=== PATIENT | male | born 1970 | race Caucasian/White ===

== ENCOUNTER 2017-02-21 12:05 | Inpatient (IN) ==
--- NOTE | 2017-02-21 14:20 | Pulmonology History & Physical ---
Date of Encounter: 02/21/17 Time of Encounter: 14:20 Assessment and Plan (1) Upper gastrointestinal bleeding Current visit: Yes Status: Acute This is suspected from gastroesophageal varices but also high risk for gastritis with resultant hematemesis from underlying coagulopathy and thrombocytopenia GI has been consulted plan for EGD We have established IV access Nothing by mouth for now He is hemodynamically stable but high risk for deterioration Start IV octreotide and Protonix 1 g Rocephin every 24 hours (2) Cirrhosis Current visit: Yes Status: Acute MELD score 27 He is being followed by a grades 7 8 tutor in [place] and appears to be on chronic diuretic and beta sheldon regimen for this purpose. We have consulted GI here May be a candidate for TIPS procedure based upon clinical course Bedside ultrasonography did not show any significant fluid collections of ascites that could be tapped Qualifiers: Ascites presence: without ascites Qualified Code(s): K74.60 - Unspecified cirrhosis of liver (3) History of esophageal varices Current visit: Yes Status: Acute (4) Hepatitis C Current visit: Yes Status: Acute He has a known diagnosis of hepatitis C but has not undergone treatment per the patient this will need outpatient follow-up Qualifiers: Hepatic coma status: without hepatic coma Qualified Code(s): B19.20 - Unspecified viral hepatitis C without hepatic coma (5) ELISABETH (acute kidney injury) Current visit: Yes Status: Acute Suspected prerenal azotemia in the context of poor by mouth intake and gastrointestinal hemorrhage With possibility of hepatorenal syndrome although this would have to be further evaluated after treatment for prerenal azotemia We have sent off urine electrolytes studies Holding diuretic Start albumin (6) Acute and chronic respiratory failure with hypoxia Current visit: Yes Status: Acute This is an unclear etiology patient has a significant hypoxemia possibility of hepatopulmonary syndrome or pulmonary hypertension related to ongoing liver disease (portal pulmonary hypertension and disease is possible cannot exclude possibility of venous thromboembolism but currently anticoagulation be contraindicated because of active hemorrhage underlying COPD his possibility of contribution but the amount of hypoxemia would seem to be out of proportion to his smoking history I have ordered some bronchodilators to be used as needed for COPD Chest x-ray pending (7) Thrombocytopenia Current visit: Yes Status: Acute This is chronic in nature and likely related to underlying cirrhosis with sequestration we are transfusing for goal platelet count greater than 50,000 with active gastritis and intestinal hemorrhage (8) Acute blood loss anemia Current visit: Yes Status: Acute Patient has acute on chronic anemia acutely is related to blood loss mildly decreased hemoglobin level from baseline transfusion goal greater than 7 History of Present Illness Chief complaint: Vomiting Blood HPI: Mr. Padilla is a 46 year old male with a history of known cirrhosis, secondary to hepatitis C from remote drug use and possible exposure to tattoos in the past he presented to outside hospital ED for bright red blood that he would been vomiting prior to admission. Of note he was recently admitted at the same institution 2 days prior where he left AGAINST MEDICAL ADVICE as part of workup for ongoing hypoxemia because he wanted to be home for the holiday. In speaking with him today he says that he denies any abdominal pain but he is just feeling very nauseous noted to have half of an emesis bag full of blood on presentation to the outside hospital ED with about 100 mL of bloody output while in the ED there and about 300 mL of bloody output in-transit from outside hospital. He is also noticed poor by mouth intake but denies fevers chills or cough. He has been diagnosed with COPD as an extensive smoking history but I do not have any PFTs to corroborate this diagnosis. OSH Reports: AB.39/42/50 Lactate 2.9 INR 1.7 CBC 6.1/8.7/27.8/48 CMP: 135/3.8/100/27/46/2.7/98 Lipase 143 ETOH <10 ECG: Personally reviewed NSR Prlonged Qtc ECHO: LV >55%, Mild RV dilation but grossly normal No evidence of ASD No evidence of Pulm HTN PMHx: Per HPI PSHx: No major surgies Family History: No family history of Liver or Lung Disease Social History: Current everyday smoker, denies EtOH, Remote Drug abuse, Uses methadone. Former [facility] MEDS: Albuterol PRN, Eplerenone 50mg daily, [id number], Nadolol 20mg, Methadone 40mg daily. Allergies: NKDA Past Med Surg Social Fam HX - Family History Father Living Status: Cause of : alzheimers Mother Living Status: Still Living Medications and Allergies Albuterol Neb [Proventil Neb] 2.5 mg IH Q8H PRN 02/21/17 [History] Albuterol Sulfate [Ventolin Hfa] 2 puff IH Q4H PRN 02/21/17 [History] Eplerenone [Inspra] 100 mg PO DAILY 02/21/17 [History] Furosemide [Lasix] 40 mg PO BID 02/21/17 [History] Gabapentin [Neurontin] 300 mg PO BID 02/21/17 [History] Midodrine [ProAmatine] 5 mg PO TID 02/21/17 [History] Nadolol [Nadolol] 20 mg PO DAILY 02/21/17 [History] 3 Allergy/AdvReac Type Severity Reaction Status Date / Time No Known Allergies Allergy Verified 02/21/17 14:27 All Systems: A 10-system review of systems was performed and is negative for pertinent findings except as documented above in the HPI. Physical Examination General appearance: appears uncomfortable Eyes: icteric ENT: oropharynx dry Effort: normal Auscultation: bilateral: clear Cardiovascular: regular rate and rhythm Gastrointestinal: normoactive bowel sounds, soft, non-tender Integumentary: normal Extremities: no cyanosis, no clubbing, edema Musculoskeletal: no deformities normal mental status, non-focal exam, pupils equal and round anxious Results - Laboratory Findings CBC and BMP: 02/21/17 14:40 02/21/17 14:40
[2017-02-21] MEDS ORDERED: Acetaminophen 325 MG TABLET PO PRN (14:21)
[2017-02-21] MEDS ORDERED: Naloxone 0.4 MG/ML INJ IVP PRN (14:21)
[2017-02-21] MEDS ORDERED: Ondansetron 4 MG/2 ML VIAL IVP PRN (14:21)
[2017-02-21] MEDS ORDERED: Albumin 25% 25gram/100mL 25 GM/100 ML IV.SOLN IVPB ONE (14:27)
[2017-02-21] MEDS ORDERED: Pantoprazole 40 MG in 0.9 % Sodium Chloride Mini Bag 100 ML IVC SCH (14:30)
[2017-02-21 14:50] LABS: Hematocrit 28.6 % (37.5-50.1); Lymphocytes % 18.2 %; Mean Corpuscular HGB Conc 31.5 g/dL (31.6-35.5)
[2017-02-21 14:52] LABS: Basophils % 0.3 %; Eosinophils % 0.5 %; Immature Granulocytes % 0.7 % (0-4); Immature Platelets 9.6 % (1.1-6.1); Lymphocytes # 1.1 K/mcL (0.6-4.6); Mean Corpuscular Hemoglobin 29.6 pg (28.0-33.3); Mean Corpuscular Volume 94.1 fL (83.0-100.0); Mean Platelet Volume 11.6 fL (9.4-12.4); Monocytes # 0.5 K/mcL (0.0-1.3); Neutrophils # 4.4 K/mcL (1.6-8.9); Platelet Count 51 K/mcL (140-400); Red Blood Count 3.04 M/mcL (4.19-5.50); Red Cell Distribution Width 16.9 % (11.5-14.5); Segmented Neutrophils % 72.3 %
[2017-02-21 14:55] LABS: INR 2.2; Prothrombin Time 24.5 Seconds (9.4-12.1)
[2017-02-21] MEDS ORDERED: cefTRIAXone 1,000 MG in Water for inj. (sterile) 10 ML IVP SCH (15:00)
[2017-02-21 15:03] LABS: Albumin 3.2 g/dL (3.5-5.7); Albumin/Globulin Ratio 0.9 (1.1-2.2); Bilirubin,Total 2.8 mg/dL (0.3-1.0); Calcium 8.6 mg/dL (8.6-10.3); Globulin 3.4 g/dL (2.4-3.5); Potassium 4.7 mEq/L (3.5-5.1); Total Protein 6.6 g/dL (6.4-8.9)
[2017-02-21] MEDS: Octreotide 400 MCG in 0.9 % Sodium Chloride 100 ML IVC SCH ×2 (15:29→22:50)
[2017-02-21] MEDS: Pantoprazole 80 MG in 0.9 % Sodium Chloride 250 ML IVC SCH (15:29)
--- NOTE | 2017-02-21 15:29 | Anesthesia Evaluation PreOp ---
Date of Encounter: 02/21/17 Time of Encounter: 16:12 - Past History Planned Operation: EGD Cardiac History: Denies any Significant Hx Pulmonary History: Smoker, COPD [employer] History: Denies Any Significant HX Other Medical History: Hepatic (Cirrhosis and Hep C), Other (hemetemesisi) Anesthesia History: No Prior Anesthetic Complications, Past Anesthesia (EGD with banding) Alcohol Use: none Drug use: none (on Methadone, remote iv drug use) Medications and Allergies Albuterol Neb [Proventil Neb] 2.5 mg IH Q8H PRN 02/21/17 [History] Albuterol Sulfate [Ventolin Hfa] 2 puff IH Q4H PRN 02/21/17 [History] Eplerenone [Inspra] 100 mg PO DAILY 02/21/17 [History] Furosemide [Lasix] 40 mg PO BID 02/21/17 [History] Gabapentin [Neurontin] 300 mg PO BID 02/21/17 [History] Midodrine [ProAmatine] 5 mg PO TID 02/21/17 [History] Nadolol [Nadolol] 20 mg PO DAILY 02/21/17 [History] 3 Allergy/AdvReac Type Severity Reaction Status Date / Time No Known Allergies Allergy Verified 02/21/17 14:27 - Meds/Allergy Pre-op Review Medications Reviewed: Yes Allergies Reviewed: Yes Beta Blockers on Current Med List: No Anesthesia Results - Labs 02/21/17 14:40 02/21/17 14:40 Anesthesia Exam Selected Entries 02/21/17 14:20 Temperature 98.4 F Pulse Rate 64 Respiratory Rate 12 Blood Pressure 135/84 O2 Sat by Pulse Oximetry 88 Oxygen Flow Rate (LPM) 15 Oxygen Delivery Method High Flow Nasal Cannula Weight: 143kg - HEENT Pupil (Motor): EOMI Mallampati: III Teeth: Missing Oral Opening: Greater than 3 - [employer] LOC: Oriented [employer] Motor: Normal RUE, Normal LUE, Normal RLE, Normal LLE, Normal Face [employer] Sensory: Normal: RUE, LUE, RLE, LLE, Face - Cardiac Rhythm: Regular Murmur: None - Pulmonary Breath Sounds: bilateral Clear Respiratory Effort: Symmetrical Anesthesia Assess/Plan ASA Score: 3 Modified [place] Scale for Level of Consciousness: Cooperative, oriented, and tranquil Anesthetic Plan: MAC Monitoring Plan: Standard Monitors Recovery Plan: PACU (patient with significant COPD, made patient aware we will attempt MAC but respiratory status may require intubation. If this occurs, may be difficult wean)
[2017-02-21] MEDS ORDERED: Ketamine *HR* 500 MG/10 ML MDV ONE (17:03)
[2017-02-21] MEDS ORDERED: *HR* Succinylcholine 200 MG/10 ML VIAL IVP ONE (17:32)
[2017-02-21] MEDS ORDERED: *HR* Rocuronium Bromide 50 MG/5 ML VIAL ONE (17:32)
--- NOTE | 2017-02-21 17:58 | Event Note ---
Date of Encounter: 02/21/17 Time of Encounter: 14:30 Patient was 6-year-old male with hep C cirrhosis admitted because of upper GI bleed with coagulopathy and severe thrombocytopenia. Hemodynamically stable. Recommendation: Continue PPI infusion continue octreotide infusion. Platelet transfusion now. Also dose of vitamin K now. Patient will be done in the OR for urgent EGD after being transfused with platelet.
[2017-02-21] MEDS: Dexmedetomidine HCl 400 MCG/100 ML MLS IVC SCH (18:14)
[2017-02-21] MEDS: FentaNYL (PF) 1,000 MCG in 0.9 % Sodium Chloride 80 ML IVC SCH (18:41)
[2017-02-21 18:49] LABS: ABG Base Excess -2 mEq/L (-2 to 3); ABG HCO3 27 mEq/L (21-27); ABG Oxygen Saturation 88 % (95-98); ABG PCO2 66 mmHg (35-45); ABG PH 7.21 pH Units (7.32-7.45); ABG PO2 68 mmHg (85-104); ABG TCO2 29 mEq/L (20-26)
[2017-02-21 19:02] LABS: Bilirubin,Urine Negative (Negative); Blood,Urine Moderate (Negative); Clarity,Urine Clear (Clear); Color,Urine Dark Yellow (Yellow); Glucose,Urine (UA) Normal (Normal); Ketones,Urine Negative (Negative); Leukocyte Esterase,Urine Negative (Negative); Nitrite,Urine Negative (Negative); PH,Urine 5.5 pH Units (5.0-8.0); Protein,Urine 30 mg/dL (Neg-Trace); Specific Gravity,Urine 1.022 (1.010-1.025); Urobilinogen,Urine Normal (Normal)
[2017-02-21 19:04] LABS: Bacteria,Urine None Seen per hpf (None-Few); Hyaline Casts,Urine None Seen per lpf (None-Few); Squamous Epithelial Cell,Urine Moderate per lpf (None-Few)
[2017-02-21 19:20] LABS: Chloride,Urine < 15 mEq/L; Sodium, Urine < 10.0 mEq/L
[2017-02-21 20:37] LABS: Hematocrit 23.7 % (37.5-50.1); Hemoglobin 7.3 g/dL (12.9-16.9); Immature Platelets 7.6 % (1.1-6.1); Lymphocytes # 0.7 K/mcL (0.6-4.6); Lymphocytes % 14.1 %; Mean Corpuscular HGB Conc 30.8 g/dL (31.6-35.5); Mean Corpuscular Hemoglobin 29.6 pg (28.0-33.3); Mean Platelet Volume 10.9 fL (9.4-12.4); Monocytes # 0.4 K/mcL (0.0-1.3); Monocytes % 8.6 %; Neutrophils # 3.8 K/mcL (1.6-8.9); Nucleated Red Blood Cells 0.4 /100 WBC (0); Red Blood Count 2.47 M/mcL (4.19-5.50); Red Cell Distribution Width 17.2 % (11.5-14.5); Segmented Neutrophils % 76.3 %
[2017-02-21] MEDS ORDERED: 0.9 % Sodium Chloride 500 ML ONE (20:37)
[2017-02-21 20:39] LABS: Platelet Count 60 K/mcL (140-400)
[2017-02-22] MEDS: Pantoprazole 80 MG in 0.9 % Sodium Chloride 250 ML IVC SCH (00:05)
[2017-02-22 01:47] LABS: ABG Base Excess -3 mEq/L (-2 to 3); ABG HCO3 25 mEq/L (21-27); ABG Oxygen Saturation 81 % (95-98); ABG PCO2 59 mmHg (35-45); ABG PH 7.23 pH Units (7.32-7.45); ABG PO2 54 mmHg (85-104); ABG TCO2 27 mEq/L (20-26); Blood Gas Modality VC; Blood Gas PEEP 10 cm H2O; Blood Gas Respiration Rate 18; Blood Gas VT 500 cc
[2017-02-22 03:06] LABS: ABG Base Excess -4 mEq/L (-2 to 3); ABG HCO3 23 mEq/L (21-27); ABG Oxygen Saturation 81 % (95-98); ABG PCO2 49 mmHg (35-45); ABG PH 7.28 pH Units (7.32-7.45); ABG PO2 51 mmHg (85-104); ABG TCO2 25 mEq/L (20-26); Blood Gas Modality ASSIST CONTROL; Blood Gas PEEP 10 cm H2O; Blood Gas Respiration Rate 22; Blood Gas VT 530 cc
[2017-02-22] MEDS ORDERED: Albumin Human 5% 50.0 GM/1,000 ML VIAL ONE (03:34)
[2017-02-22] MEDS: Dexmedetomidine HCl 400 MCG/100 ML MLS IVC SCH (03:45)
[2017-02-22 03:47] LABS: Hematocrit 24.3 % (37.5-50.1); Hemoglobin 7.5 g/dL (12.9-16.9); Immature Granulocytes % 0.5 % (0-4); Mean Corpuscular HGB Conc 30.9 g/dL (31.6-35.5); Mean Corpuscular Hemoglobin 29.4 pg (28.0-33.3); Mean Corpuscular Volume 95.3 fL (83.0-100.0); Mean Platelet Volume 11.1 fL (9.4-12.4); Monocytes # 0.4 K/mcL (0.0-1.3); Monocytes % 7.1 %; Red Blood Count 2.55 M/mcL (4.19-5.50); Red Cell Distribution Width 17.5 % (11.5-14.5); Segmented Neutrophils % 73.4 %
[2017-02-22 04:02] LABS: Lymphocytes # 1.1 K/mcL (0.6-4.6); Platelet Count 56 K/mcL (140-400)
[2017-02-22 04:14] LABS: INR 2.1; Prothrombin Time 22.7 Seconds (9.4-12.1)
[2017-02-22 04:21] LABS: Albumin 3.4 g/dL (3.5-5.7); Albumin/Globulin Ratio 1.1 (1.1-2.2); Bilirubin,Total 3.4 mg/dL (0.3-1.0); Calcium 8.5 mg/dL (8.6-10.3); Globulin 3.1 g/dL (2.4-3.5); Potassium 5.5 mEq/L (3.5-5.1); Total Protein 6.5 g/dL (6.4-8.9)
[2017-02-22 05:10] VITALS: BP 92/54
[2017-02-22] MEDS: Octreotide 400 MCG in 0.9 % Sodium Chloride 100 ML IVC SCH (05:11)
[2017-02-22] MEDS ORDERED: *HR* Midazolam HCl 2 MG/2 ML VIAL IVP ONE (05:29)
[2017-02-22] MEDS: FentaNYL (PF) 1,000 MCG in 0.9 % Sodium Chloride 80 ML IVC SCH (05:36)
--- NOTE | 2017-03-01 07:32 | Discharge Summary ---
Date of Encounter: 03/01/17 Time of Encounter: 07:31 - Discharge Diagnosis (1) Upper gastrointestinal bleeding Priority: Primary Status: Acute (2) Cirrhosis Priority: Secondary Status: Acute Qualifiers: Ascites presence: without ascites Qualified Code(s): K74.60 - Unspecified cirrhosis of liver (3) History of esophageal varices Priority: Secondary Status: Acute (4) Hepatitis C Priority: Secondary Status: Acute Qualifiers: Hepatic coma status: without hepatic coma Qualified Code(s): B19.20 - Unspecified viral hepatitis C without hepatic coma (5) ELISABETH (acute kidney injury) Priority: Secondary Status: Acute (6) Acute and chronic respiratory failure with hypoxia Priority: Secondary Status: Acute (7) Thrombocytopenia Priority: Secondary Status: Acute (8) Acute blood loss anemia Priority: Secondary Status: Acute - Discharge Medications Home Medications: Albuterol Neb [Proventil Neb] 2.5 mg IH Q8H PRN 02/21/17 [History] Albuterol Sulfate [Ventolin Hfa] 2 puff IH Q4H PRN 02/21/17 [History] Eplerenone [Inspra] 100 mg PO DAILY 02/21/17 [History] Furosemide [Lasix] 40 mg PO BID 02/21/17 [History] Gabapentin [Neurontin] 300 mg PO BID 02/21/17 [History] Midodrine [ProAmatine] 5 mg PO TID 02/21/17 [History] Nadolol [Nadolol] 20 mg PO DAILY 02/21/17 [History] Allergies/Adverse Reactions: 3 Allergy/AdvReac Type Severity Reaction Status Date / Time No Known Allergies Allergy Verified 02/21/17 14:27 - Impressions ITS Impressions Chest X-Ray 02/21/17 14:23 IMPRESSION: No acute process. D/ / Justice Gonzalez MD / Justice Gonzalez MD Interpreting Provider: Justice Gonzalez MD Chest X-Ray 02/22/17 01:31 IMPRESSION: The endotracheal tube tip is 6-7 cm above the anali. No acute infiltrate. D/ / Sylvain Ramos MD / Sylvain Ramos MD Interpreting Provider: Sylvain Ramos MD Date of admission: 02/21/17 14:12 Primary care physician: PCP NONE Consults: 02/21/17 14:49 Consult to Pastoral Services [CONS] Routine Comment: Consult to Therapy Tech [CONS] Routine Reason for SW Consult: [facility] needs Discharging clinician: Kam Sanders Anticipated date of discharge: 02/23/17 - Patient Status Disposition: Transfer Other Condition: Serious Overall status at discharge: other - Discharge Instructions Follow Up With: NONE,PCP [Primary Care Provider] - - Hospital Course Hospital course: Mr. Padilla is a 46 year old male admitted fo upper and per gastrointestinal hemorrhage history of portal hypertension secondary to hepatitis C cirrhosis noted to have active hemorrhage on admission to ICU from transfer from outside hospital seen by GI and EGD was performed emergently with anesthesia with banding of a and actively bleeding varix. Although bleeding resolved he remained extremely hypoxemic with shunt physiology and concern of underlying hepatopulmonary syndrome he was transferred to [place] for further evaluation where he was per report on the transplant list and had followed with a gang supervisor there he was transferred in critical condition on maximal ventilator support via medevac. - Time Spent with Patient Total time spent providing and/or coordinating discharge services: Physical Examination She daily progress note for full examination patient was discharged from the hospital one I was not in the hospital emergently life flight evacuated to a tertiary referral center - VTE Documentation of Mechanical Device: Intermittent pneumatic compression device
== END 2017-02-22 06:13 | disposition other institution (70) | DRG 242 ==
LOC: ICNU 14:12
PROVIDERS: ADMIT Internal Medicine Hospice and Palliative Medicine; ATTEND Internal Medicine Hospice and Palliative Medicine